=== PATIENT | female | born 1990 | race Caucasian/White ===

== ENCOUNTER 2019-06-28 09:41 | Emergency (ER) | payer SELFPAY ==
[2019-06-28 10:18] VITALS: BP 138/72
--- NOTE | 2019-06-28 10:26 | UC ---
Hand/Wrist HPI - HPI Summary HPI Summary: 29-year-old female presents for injury of her right hand. States last night approximately 10:30 PM she became angry and punched a mirror that was hangoing on a wall. States she initially only has some mild pain but this morning woke up with increased pain, significant bruising, and swelling of the hand. Pain is located over the mid fifth metacarpal. She has full range of motion to all of her fingers however pain worsens with flexion. She is right-hand dominant. Denies lacerations, numbness, or tingling. - History Of Current Complaint Chief Complaint: UCUpperExtremity Stated Complaint: HAND INJURY Time Seen by Provider: 06/28/19 10:11 Hx Obtained From: Patient Hx Last Menstrual Period: 06/05/18 Pain Intensity: 8 - Allergies/Home Medications Allergies/Adverse Reactions: Allergies Allergy/AdvReac Type Severity Reaction Status Date / Time erythromycin base Allergy Hives Verified 06/28/19 10:19 Home Medications: Home Medications Fluticasone NASAL SPRAY 50MCG* [Flonase NASAL SPRAY 50MCG*] 1 spray ALT NARE DAILY 06/28/19 [History Confirmed 06/28/19] PMH/Surg Hx/FS Hx/Imm Hx Previously Healthy: Yes - Denies significant PMH - Surgical History Surgical History: None - Family History Family History: No significant FMH - Social History Alcohol Use: Weekly Substance Use Type: None Smoking Status (MU): Heavy Every Day Tobacco Smoker Review of Systems All Other Systems Reviewed And Are Negative: Yes Constitutional: Positive: Negative Skin: Positive: Bruising Respiratory: Positive: Negative Cardiovascular: Positive: Negative Gastrointestinal: Positive: Negative Genitourinary: Positive: Negative Motor: Negative: Weakness Neurovascular: Negative: Decreased Sensation Musculoskeletal: Positive: Other: - See HPI Neurological/Mental Status: Positive: Negative Is Patient Immunocompromised?: No Physical Exam - Summary Physical Exam Summary: GENERAL APPEARANCE: Well developed, well nourished, alert and cooperative, and appears to be in no acute distress. CARDIAC: Normal S1 and S2. No S3, S4 or murmurs. Rhythm is regular. There is no peripheral edema, cyanosis or pallor. Extremities are warm and well perfused. Capillary refill is less than 2 seconds. Peripheral pulses intact. LUNGS: Clear to auscultation without rales, rhonchi, wheezing or diminished breath sounds. ABDOMEN: Positive bowel sounds. Soft, nondistended, nontender. No guarding or rebound. No masses or hepatosplenomegally. MUSKULOSKELETAL: Normal muscular development. Normal gait. EXTREMITIES: Tenderness over the mid 5th metacarpal of the right hand with moderate ecchymosis and edema. Full ROM to all fingers and wrist. Circulation and sensation intact. SKIN: Skin normal color, texture and turgor with no lesions or eruptions. Triage Information Reviewed: Yes Vital Signs: Initial Vital Signs Temp 97.2 F 06/28/19 10:14 Pulse 90 06/28/19 10:14 Resp 18 06/28/19 10:14 BP 138/72 06/28/19 10:14 Pulse Ox 99 06/28/19 10:14 Vital Signs Reviewed: Yes Diagnostics - Radiology No standard instances Radiology Interpretation Completed By: Radiologist Summary of Radiographic Findings: Order Information: HAND - RIGHT MINIMUM 3 VIEWS. INDICATION: Pain and bruising following punching a narrow. COMPARISON: No relevant prior exams available on the [facility] for comparison. TECHNIQUE: AP , lateral, and oblique views RIGHT hand. REPORT AND IMPRESSION: #. Normal articular alignment. #. Minimally comminuted distal diaphyseal distal metaphyseal fracture of the fifth metacarpal with approximate 40 degrees apex dorsal angulation and overlying soft tissue swelling. Hand/Wrist Course/Dx - Course Course Of Treatment: 29-year-old female presents for injury of her right hand. States last night approximately 10:30 PM she became angry and punched a mirror that was hangoing on a wall. States she initially only has some mild pain but this morning woke up with increased pain, significant bruising, and swelling of the hand. Pain is located over the mid fifth metacarpal. She has full range of motion to all of her fingers however pain worsens with flexion. She is right-hand dominant. Denies lacerations, numbness, or tingling. Afebrile. Vital signs stable. Patient had tenderness over the mid 5th metacarpal of the right hand with moderate ecchymosis and edema, full ROM to all fingers and wrist with circulation and sensation intact. Remainder of exam was unremarkable. X-ray showed a minimally comminuted distal diaphyseal distal metaphyseal fracture of the fifth metacarpal with approximate 40 degrees apex dorsal angulation and overlying soft tissue swelling. Reviewed results with patient. Case was referred to Dr. Ferguson, orthopedic surgery, who requests to see patient in the office now to which the patient is agreeable. Anticpatory guidance and warning symptoms were reviewed with the patient. Verbalizes understanding and agrees with plan of care. - Differential Dx/Diagnosis Differential Diagnosis/HQI/PQRI: Contusion, Dislocation, Fracture, Sprain Provider Diagnosis: Closed displaced fracture of neck of right fifth metacarpal bone Discharge ED - Sign-Out/Discharge Documenting (check all that apply): Patient Departure All imaging exams completed and their final reports reviewed: Yes - Discharge Plan Condition: Stable Disposition: HOME Patient Education Materials: Boxer Fracture (ED) Referrals: No Primary Care Phys,NOPCP [Primary Care Provider] - Guille Ferguson MD [Medical Doctor] - () Additional Instructions: The x-ray performed in the clinic today showed evidence of a displaced fracture of the right 5th metacarpal bone (Boxer's fracture). Rest the hand as much as possible. Apply ice to the affected area for 15-20 minutes at least 4 times a day to help with the pain and swelling. Elevate the hand to help reduce swelling. Follow up with orthopedic surgery now. You should go strait to the office from here. Do not eat or drink anything. - Billing Disposition and Condition Condition: STABLE Disposition: Home
[2019-06-28] MEDS ORDERED: Naproxen TAB* 250 MG PO ONE (10:33)
== END 2019-06-28 11:07 | disposition home or self-care (01) ==
LOC: UCEAST 09:41
DX: S62.336A Displaced fracture of neck of fifth metacarpal bone, right hand, initial encounter for closed fracture (principal); W22.8XXA Striking against or struck by other objects, initial encounter; Y92.9 Unspecified place or not applicable; Z88.1 Allergy status to other antibiotic agents; F17.200 Nicotine dependence, unspecified, uncomplicated
CPT/HCPCS: 99211; A9270-GY; G0463

== ENCOUNTER 2019-06-30 07:11 | Day surgery (SDC) | payer BC ==
[~2019-06-30 07:11] MED LIST: Buffered Lidocaine 1% SYRIN* 1 ML/SYRINGE INTRADERM ONE; Dexamethasone IV* 4 MG/ML 1 ML (4 MG) IV SLOW PU ONE; Famotidine IV* 10 MG/ML 2 ML (20 mg) IV ONE; Lactated Ringers 1000 ML Bag* 1,000 ML IV SCH
[2019-06-30] MEDS ORDERED: Dexamethasone IV* 4 MG/ML 1 ML (4 MG) ONE (07:39)
[2019-06-30] MEDS ORDERED: Buffered Lidocaine 1% SYRIN* 1 ML/SYRINGE INTRADERM ONE (07:40)
[2019-06-30] MEDS ORDERED: Famotidine IV* 10 MG/ML 2 ML (20 mg) ONE (07:40)
[2019-06-30] MEDS ORDERED: ceFAZolin 2 GM PREMIX in ORs 2 GM/50 ML BAG ONE (07:40)
[2019-06-30] MEDS ORDERED: Bupivacaine 0.25% SDV PF* 10 ML VIAL INJ ONE (08:53)
[2019-06-30] MEDS ORDERED: Midazolam* 1 MG/ML 2 ML VIAL (2 MG) ONE ×2 (08:55→09:50)
[2019-06-30] MEDS ORDERED: fentaNYL* 50 MCG/ML 2 ML VIAL (100 MCG VIAL) ONE (08:55)
[2019-06-30] MEDS ORDERED: Propofol* 10 MG/ML 20 ML BTL ONE (09:29)
[2019-06-30] MEDS ORDERED: Lidocaine 0.5%* 50 ML SDV ONE (09:29)
[2019-06-30] MEDS ORDERED: Naloxone* 0.4 MG/ML 1 ML VIAL IV PRN (10:25)
[2019-06-30] MEDS ORDERED: fentaNYL* 50 MCG/ML 2 ML VIAL (100 MCG VIAL) IV PRN (10:25)
[2019-06-30] MEDS ORDERED: Ondansetron INJ* 2 MG/ML VIAL IV PRN (10:25)
[2019-06-30] MEDS ORDERED: HYDROcodone/ACETAMIN 5-325 MG* 1 TAB ONE (10:37)
[2019-06-30 10:55] VITALS: BP 99/67
--- NOTE | 2019-06-30 16:29 | OP ---
OPERATIVE REPORT: DATE OF OPERATION: 06/30/19 - SDS DATE OF : 89 SURGEON: Guille Ferguosn MD. PRODUCTION MATERIAL HANDLER: DOMINGUEZ Rollins. ANESTHESIOLOGIST: Dr. Sherman. ANESTHESIA: [place] block. PRE-OP DIAGNOSIS: Right displaced fifth metacarpal distal shaft fracture. POST-OP DIAGNOSIS: Right displaced fifth metacarpal distal shaft fracture. OPERATIVE PROCEDURE: Open reduction and internal fixation right fifth metacarpal fracture. ESTIMATED BLOOD LOSS: 2 mL. COMPLICATIONS: None. FINDINGS: See above and below. DESCRIPTION OF PROCEDURE: Ms. Sam was seen in preoperative holding area. The correct site, side and procedures were identified. We came back to the operating room. A [place] block was performed. The arm was then scrubbed and prepped and draped in usual fashion and a time-out was performed. I first brought in the mini C-arm fluoroscopy and I confirmed the reduction. I then utilized the [employer]Med intramedullary metacarpal screw. This was a 4.5 screw. I went ahead and flexed down the MP joint and curled the finger underneath the hand. I then placed the guidewire for the screw in the appropriate location starting distally on the dorsal aspect of the metacarpal head and all the way down to the subchondral bone. I measured and selected a 40 -mm screw. After I had made my skin incision, I went ahead and passed the drill down through the extensor tendon. I drilled over the wire down to the proximal aspect of the metacarpal. I then removed the drill. I then placed my 4.5 x 40 mm screw over the wire and this came down. I confirmed the reduction. It held very nicely. I confirmed the alignment clinically. The rotation was very nice. Once I had removed my guidewire, I went ahead and checked it on my final fluoroscopic imaging, everything looked very good. The wound was irrigated out. The skin was closed with 4-0 nylon suture. The wound was dressed with Xeroform, 4x4s, sterile Webril, and an ulnar gutter splint was applied to the hand in the protected position. Some 0.25% Marcaine had been infiltrated. She was taken to the recovery room in stable condition. [id number]/[facility] #: [id number] [facility]
== END 2019-06-30 11:22 | disposition home or self-care (01) ==
LOC: OR 07:11
PROVIDERS: ATTEND Orthopaedic Surgery Hand Surgery
DX: S62.326A Displaced fracture of shaft of fifth metacarpal bone, right hand, initial encounter for closed fracture (principal); W22.8XXA Striking against or struck by other objects, initial encounter; Y92.9 Unspecified place or not applicable; J45.909 Unspecified asthma, uncomplicated; F41.9 Anxiety disorder, unspecified; F17.210 Nicotine dependence, cigarettes, uncomplicated
CPT/HCPCS: 76000; 81025; C1713; J0690; J1100; J2250; J2704; J3010; J3490